=== PATIENT | female | born 1930 | race Hispanic/Latino ===

== ENCOUNTER 2016-07-10 13:25 | Emergency (ER) | payer MEDICARE ==
[2016-07-10] MEDS ORDERED: ZOFRAN IV ONE (13:59)
[2016-07-10] MEDS ORDERED: MORPHINE IV ONE ×2 (14:07→16:56)
[2016-07-10 14:20] LABS: Basophils % (Auto) 0.6 % (0.0-1.8); Eosinophils % (Auto) 0.8 % (0.0-4.3); Hematocrit 36.4 % (30.3-42.9); Mean Corpuscular HGB Conc 33 % (30-34); Mean Corpuscular Hemoglobin 30 pg (28-32); Mean Corpuscular Volume 90 fl (79-97); Red Blood Count 4.07 M/mm3 (3.65-5.03); Red Cell Distribution Width 14.6 % (13.2-15.2); White Blood Count 11.6 K/mm3 (4.5-11.0)
--- NOTE | 2016-07-10 14:24 | Emergency Department Report ---
HPI - General Chief Complaint: Abdominal Pain Time Seen by Provider: 07/10/16 13:55 - HPI HPI: Room 24 The patient is an 86-year-old female presenting with a chief complaint of left flank pain. Patient states her symptoms began last night with pain in the left flank radiating to the left lower quadrant. The patient states the pain has been intermittent and associated with nausea and vomiting. The patient states she noticed hematuria a few days before the onset of her pain. Patient denies dysuria or fever. Location: Left Flank Duration: Intermittent since last night Quality: Pain Severity: 01/17 Modifying factors: [see above] Context: [see above] Mode of transportation: [not driving] ED Past Medical Hx - Past Medical History Hx Hypertension: Yes Hx Heart Attack/AMI: Yes Hx Congestive Heart Failure: Yes Hx Diabetes: Yes Hx Deep Vein Thrombosis: Yes Hx Arthritis: Yes Hx Kidney Stones: Yes Hx COPD: Yes Additional medical history: hypothyroid - Surgical History Hx Coronary Stent: Yes (1 stent) Additional Surgical History: bilateral shoulder surgery. hysterectomy - Family History Family history: no significant - Social History Smoking Status: Never Smoker Substance Use Type: None - Medications Home Medications: Home Medications Medication Instructions Recorded Confirmed Last Taken Type Levothyroxine [Synthroid] 75 mcg PO DAILY 02/18/14 04/05/16 1 Day Ago History 75 ALPRAZolam [ALPRAZolam Odt] 0.5 mg PO BID PRN #30 tab 09/26/15 04/05/16 1 Day Ago Rx 0.5 Aspirin [Aspirin BABY CHEW TAB] 81 mg PO DAILY #30 tab.chew 09/26/15 04/05/16 1 Day Ago Rx 81 FLUoxetine [PROzac] 20 mg PO DAILY #30 tablet 09/26/15 04/05/16 1 Day Ago Rx 20 ISOSORBIDE MONOnitrate [Monoket] 60 mg PO DAILY #30 tablet 09/26/15 04/05/16 1 Day Ago Rx 60 Losartan [Cozaar] 100 mg PO QDAY #30 tablet 09/26/15 04/05/16 1 Day Ago Rx 100 Metformin HCl [Glucophage] 500 mg PO DAILY #30 tablet 09/26/15 04/05/16 1 Day Ago Rx 500 Metoprolol [Lopressor TAB] 25 mg PO BID #60 tablet 09/26/15 04/05/16 1 Day Ago Rx 25 Rosuvastatin (Nf) [Crestor] 10 mg PO QHS #30 tablet 09/26/15 04/05/16 1 Day Ago Rx 10 HYDROcodone/APAP 5-325 [[place] 1 - 2 each PO Q6HR PRN #20 tablet 07/10/16 Unknown Rx 5/325] Ibuprofen [Motrin 800 MG tab] 800 mg PO Q8HR PRN #20 tablet 07/10/16 Unknown Rx Promethazine [Phenergan TAB] 25 mg PO Q6HR PRN #20 tab 07/10/16 Unknown Rx Promethazine [Phenergan] 25 mg AR Q6HR PRN #10 supp.rect 07/10/16 Unknown Rx ED Review of Systems ROS: Stated complaint: FLANK/BACK PAIN Other details as noted in HPI Comment: All other systems reviewed and negative Constitutional: denies: chills, fever Eyes: denies: eye pain, eye discharge, vision change ENT: denies: ear pain, throat pain Respiratory: denies: cough, shortness of breath, wheezing Cardiovascular: denies: chest pain, palpitations Endocrine: no symptoms reported Gastrointestinal: abdominal pain, nausea, vomiting Genitourinary: hematuria Musculoskeletal: back pain Skin: denies: rash, lesions Neurological: denies: headache, weakness, paresthesias Psychiatric: denies: anxiety, depression Hematological/Lymphatic: denies: easy bleeding, easy bruising Physical Exam - Physical Exam Vital Signs: Vital Signs 07/10/16 13:32 Temperature 98.3 F Pulse Rate 57 L Respiratory 16 Rate Blood Pressure 183/58 O2 Sat by Pulse 99 Oximetry Physical Exam: GENERAL: The patient is well-developed well-nourished female lying on stretcher actively vomiting into an emesis bag appearing to be in moderate discomfort. [] HEENT: Normocephalic. Atraumatic. Extraocular motions are intact. Patient has moist mucous membranes. NECK: Supple. Trachea midline CHEST/LUNGS: Clear to auscultation. There is no respiratory distress noted. HEART/CARDIOVASCULAR: Regular. There is no tachycardia. There is no gallop rub or murmur. ABDOMEN: Abdomen is soft, with mild discomfort to palpation in the left lower quadrant. Patient has normal bowel sounds. There is no abdominal distention. SKIN: There is no rash. There is no edema. There is no diaphoresis. NEURO: The patient is awake, alert, and oriented. The patient is cooperative. The patient has normal speech MUSCULOSKELETAL: There is left CVA tenderness. There is no evidence of acute injury. ED Course Vital Signs 07/10/16 13:32 Temperature 98.3 F Pulse Rate 57 L Respiratory 16 Rate Blood Pressure 183/58 O2 Sat by Pulse 99 Oximetry ED Medical Decision Making - Lab Data Result diagrams: 07/10/16 13:56 07/10/16 13:56 Laboratory Tests 07/10/16 07/10/16 07/10/16 13:56 13:56 16:00 WBC 11.6 H RBC 4.07 Hgb 12.0 Hct 36.4 MCV 90 MCH 30 MCHC 33 RDW 14.6 Plt Count 135 L Lymph % (Auto) 15.4 [place] % (Auto) 5.6 Eos % (Auto) 0.8 Baso % (Auto) 0.6 Lymph # 1.8 [place] # 0.7 Eos # 0.1 Baso # 0.1 Seg Neutrophils % 77.6 H Seg Neutrophils # 9.0 H Sodium 135 L Potassium 5.1 H Chloride 99.2 Carbon Dioxide 18 L Anion Gap 23 BUN 20 H Creatinine 1.3 H Estimated GFR 39 BUN/Creatinine Ratio 15.38 Glucose 165 H Calcium 9.3 Total Bilirubin 0.6 AST 37 ALT 15 Alkaline Phosphatase 78 Total Protein 7.4 Albumin 3.7 L Albumin/Globulin Ratio 1.0 Lipase 60 Urine Color Yellow Urine Turbidity Clear Urine pH 5.0 Ur Specific [place] 1.014 Urine Protein 30 mg/dl Urine Glucose (UA) Neg Urine Ketones Neg Urine Blood Lg Urine Nitrite Neg Urine Bilirubin Neg Urine Urobilinogen < 2.0 Ur Leukocyte Esterase Tr Urine WBC (Auto) 1.0 Urine RBC (Auto) 24.0 U Epithel Cells (Auto) 1.0 Urine Bacteria (Auto) 1+ Urine Mucus Few - Radiology Data Radiology results: report reviewed (CT abdomen and pelvis), image reviewed (CT abdomen and pelvis) CT abdomen and pelvis (read by radiologist)-mild left hydroureter nephrosis secondary to 3 mm left distal ureteral calculus is new since April 2011. Small left intrarenal calculus also noted. - Differential Diagnosis renal colic, diverticulitis, pyelonephritis Critical care attestation.: If time is entered above; I have spent that time in minutes in the direct care of this critically ill patient, excluding procedure time. ED Disposition Clinical Impression: Acute left flank pain, Nausea & vomiting, Renal colic on left side Disposition: DISCHARGED TO HOME OR SELFCARE Is pt being admited?: No Does the pt Need Aspirin: No Condition: Stable Instructions: Abdominal Pain (ED), Renal Colic (ED) Additional Instructions: Return to the emergency department immediately should you develop worsening symptoms, fever, inability to tolerate food or liquid or any other concerns. Prescriptions: HYDROcodone/APAP 5-325 [[place] 5/325] 1 - 2 each PO Q6HR PRN #20 tablet PRN Reason: Pain Ibuprofen [Motrin 800 MG tab] 800 mg PO Q8HR PRN #20 tablet PRN Reason: Pain Promethazine [Phenergan TAB] 25 mg PO Q6HR PRN #20 tab PRN Reason: Nausea Promethazine [Phenergan] 25 mg AR Q6HR PRN #10 supp.rect PRN Reason: Vomiting Referrals: PRIMARY CARE, [Primary Care Provider] - 3-5 Days RORO SHERIDAN MD [Staff Physician] - 3-5 Days (Dr. Sheridan is a urologist. Please follow up with him for further evaluation) Time of Disposition: 17:00
[2016-07-10 14:30] LABS: Albumin 3.7 g/dL (3.9-5); BUN/Creatinine Ratio 15.38; Bilirubin,Total 0.6 mg/dL (0.1-1.2); Calcium 9.3 mg/dL (8.4-10.2); Chloride 99.2 mmol/L (98-107); Total Protein 7.4 g/dL (6.3-8.2)
[2016-07-10 14:43] LABS: Potassium 5.1 mmol/L (3.6-5.0)
[2016-07-10 15:12] LABS: Platelet Count 135 K/mm3 (140-440)
[2016-07-10] MEDS ORDERED: TORADOL IV ONE (15:44)
--- NOTE | 2016-07-10 15:51 | Cat Scan Report ---
CT ABDOMEN AND PELVIS WITHOUT CONTRAST INDICATION: Left flank pain, nausea, vomiting. COMPARISON: 04/29/2011 FINDINGS: Noncontrast abdomen and pelvis CT performed. LUNG BASES: Top normal heart size. Atherosclerotic aortic and coronary calcifications. No effusions. Mild bilateral peripheral/subpleural scarring as also approximately 1 cm calcified scarring/granuloma at the left lung base posteriorly on axial series 2 image 32 again noted. Nonspecific distal esophageal wall thickening, not excluded for gastroesophageal reflux and/or hiatal hernia, amongst others. ABDOMEN: Please note that sensitivity to detect small visceral lesions is limited due to the absence of intravenous or oral contrast. Mild left hydronephrosis and hydroureter now seen, extending inferiorly into the pelvis. Slight left perinephric stranding. A 3 mm left intrarenal calculus inferiorly also noted, axial image 134, series 2. No radiopaque right renal calculi with an approximately 4 mm hyperdense, possibly hemorrhagic cyst anteroinferiorly on axial image 146, series 2. Interval cholecystectomy. Otherwise grossly unremarkable unenhanced liver, spleen, pancreas, adrenals, nonaneurysmal abdominal aorta with atherosclerotic calcifications and IVC. Nonopacified GI tract evaluation limited, though grossly nonobstructive. Mild descending colon diverticulosis. No ascites or size significant adenopathy. Fat-containing inguinal hernia with a transverse neck of 1.5 cm is stable. PELVIS: Dilated left distal ureter leads to an approximately 3 mm obstructing calculus, axial image 267, series 2, situated approximately 3 cm proximal to the ureterovesical junction. Few pelvic vascular calcifications also again noted. Otherwise grossly unremarkable urinary bladder and the rectum. Numerous sigmoid diverticuli without acute complication. No free fluid or significant adenopathy. Prominent fat within the inguinal canal regions noted. Demineralized bones with multilevel spinal degenerative changes again seen, including mild dextroscoliosis apex about L3-L4. Multilevel lumbar vacuum disc phenomenon, greatest at L2-L3 and L3-L4. Mild, approximately 2-3 mm retrolisthesis of L2 over L3 and L3 over L4 as well. Approximately 1.5 cm Schmorl's node along superior endplate of L2 also noted. L5-S1 facet arthropathy. CONCLUSION: 1. Mild left hydroureteronephrosis secondary to a 3 mm left distal ureteral calculus is new since April 2011, as described. Small left intrarenal calculus also noted. 2. Interval cholecystectomy. 3. Various other stable findings, including atherosclerotic changes, chronic imaged lower lung changes, distal esophageal prominence, diverticulosis, fat-containing umbilical hernia and multilevel spinal degenerative changes, amongst others, as described. I phoned the above results to Dr. Marrero in the ER, 3:40 PM, 07/10/2016. Thank you for the opportunity to participate in this patient's care.
[2016-07-10 16:18] LABS: Bacteria,Urine 1+ /HPF (Negative); Bilirubin,Urine NEG (Negative); Blood,Urine LG (Negative); Ketones,Urine NEG (Negative); Leukocyte Esterase,Urine TR (Negative); Mucus,Urine FEW /HPF; Nitrite,Urine NEG (Negative); Urobilinogen,Urine < 2.0 mg/dL (<2.0)
[2016-07-10 16:50] VITALS: BP 129/81
== END 2016-07-10 17:25 | disposition home or self-care (01) ==
LOC: ED 13:25
DX: N23 Unspecified renal colic (principal); I10 Essential (primary) hypertension; E11.9 Type 2 diabetes mellitus without complications; J44.9 Chronic obstructive pulmonary disease, unspecified; E03.9 Hypothyroidism, unspecified; I50.9 Heart failure, unspecified; Z87.19 Personal history of other diseases of the digestive system; Z86.718 Personal history of other venous thrombosis and embolism
CPT/HCPCS: 36415; 74176; 80053; 81001; 83690; 85025; 96374; 96375; 96376; 99284; J1885; J2270; J2405

== ENCOUNTER 2016-07-20 11:36 | Outpatient (CLI) | payer MEDICARE ==
--- NOTE | 2016-07-20 12:28 | Cat Scan Report ---
CT ABDOMEN AND PELVIS WITHOUT CONTRAST INDICATION: Calculus of kidney. COMPARISON: 07/10/2016 FINDINGS: Noncontrast abdomen and pelvis CT performed. LUNG BASES: Top normal heart size, atherosclerotic aortic and coronary calcifications and chronic left lower lobe scarring and approximately 1 cm calcified granuloma again noted. Slight increased AP chest diameter. No effusions. Nonspecific distal esophageal wall thickening, not excluded for gastroesophageal reflux and/or hiatal hernia, amongst others. ABDOMEN: Please note that sensitivity to detect small visceral lesions is limited due to the absence of intravenous or oral contrast. Interval resolution of left hydroureteronephrosis. Stable 3 mm left intrarenal calculus on axial image 138, series 2 and a tiny right renal hemorrhagic cyst anteriorly, axial image 135. No other significant interval change, including stable cholecystectomy clips, fat-containing umbilical hernia with a transverse neck of 1.7 cm and few descending colon diverticuli. PELVIS: Previously seen left distal ureter calculus no longer identified, likely passed in the interval. Uterus again surgically absent. Rectal stool. Urinary bladder suboptimally distended and assessed. Numerous sigmoid diverticuli and prominent fat within the inguinal canal regions again noted. Stable bones, including various degenerative changes, detailed previously and greatest about L2 and L3 levels. CONCLUSION: 1. Interval nonvisualization/passage of left distal ureteral calculus and resolution of left hydroureteronephrosis, as described. 2. Various other stable findings, as detailed above. Thank you for the opportunity to participate in this patient's care.
== END 2016-07-20 11:37 | disposition home or self-care (01) ==
LOC: CT 11:36
PROVIDERS: ATTEND Urology
DX: N20.0 Calculus of kidney (principal); N28.1 Cyst of kidney, acquired; N20.1 Calculus of ureter; I70.0 Atherosclerosis of aorta; K42.9 Umbilical hernia without obstruction or gangrene; M47.896 Other spondylosis, lumbar region; Z90.49 Acquired absence of other specified parts of digestive tract
CPT/HCPCS: 74176

== ENCOUNTER 2016-11-29 09:22 | Observation (INO) | payer MEDICARE ==
[2016-11-29 10:53] LABS: Basophils % (Auto) 0.5 % (0.0-1.8); Eosinophils % (Auto) 1.5 % (0.0-4.3); Hemoglobin 11.7 gm/dl (10.1-14.3); Mean Corpuscular HGB Conc 33 % (30-34); Mean Corpuscular Hemoglobin 30 pg (28-32); Mean Corpuscular Volume 91 fl (79-97); Platelet Count 135 K/mm3 (140-440); Red Blood Count 3.86 M/mm3 (3.65-5.03); Red Cell Distribution Width 14.1 % (13.2-15.2); White Blood Count 6.3 K/mm3 (4.5-11.0)
[2016-11-29] MEDS ORDERED: ASPIRIN PO ONE (11:02)
--- NOTE | 2016-11-29 11:07 | Emergency Department Report ---
ED Shortness of Breath HPI - General Chief Complaint: Arrhythmia/Palpitations Stated Complaint: PALPITATIONS Time Seen by Provider: 11/29/16 10:21 Source: patient, EMS Mode of arrival: Stretcher Limitations: No Limitations - History of Present Illness Initial Comments: 86-year-old female hit a history of CAD and COPD here with complaint of worsening shortness of breath for the last 3 days and chest pain today. Patient states that she's noticed that she's having increasing fatigue and shortness of breath especially when she exerts herself. She noticed chest pain today on arrival to the emergency department with radiation to the left shoulder and left arm. She denies cough fevers chills nausea vomiting. She appears comfortable. She is a patient of . Stent placed approximately 4 years ago. MD Complaint: shortness of breath -: Gradual (shortness of breath), Sudden (chest pain) Radiation: left arm Severity: mild Quality: burning Consistency: intermittent Improves With: nothing Worsens With: nothing Known History Of: COPD, other (CAD) Associated Symptoms: chest pain - Related Data Home Medications Medication Instructions Recorded Confirmed Last Taken Levothyroxine [Synthroid] 75 mcg PO DAILY 02/18/14 04/05/16 1 Day Ago 75 Previous Rx's Medication Instructions Recorded Last Taken Type ALPRAZolam [ALPRAZolam Odt] 0.5 mg PO BID PRN #30 tab 09/26/15 1 Day Ago Rx 0.5 Aspirin [Aspirin BABY CHEW TAB] 81 mg PO DAILY #30 tab.chew 09/26/15 1 Day Ago Rx 81 FLUoxetine [PROzac] 20 mg PO DAILY #30 tablet 09/26/15 1 Day Ago Rx 20 ISOSORBIDE MONOnitrate [Monoket] 60 mg PO DAILY #30 tablet 09/26/15 1 Day Ago Rx 60 Losartan [Cozaar] 100 mg PO QDAY #30 tablet 09/26/15 1 Day Ago Rx 100 Metformin HCl [Glucophage] 500 mg PO DAILY #30 tablet 09/26/15 1 Day Ago Rx 500 Metoprolol [Lopressor TAB] 25 mg PO BID #60 tablet 09/26/15 1 Day Ago Rx 25 Rosuvastatin (Nf) [Crestor] 10 mg PO QHS #30 tablet 09/26/15 1 Day Ago Rx 10 HYDROcodone/APAP 5-325 [[place] 1 - 2 each PO Q6HR PRN #20 tablet 03/03/17 Unknown Rx 5/325] Ibuprofen [Motrin 800 MG tab] 800 mg PO Q8HR PRN #20 tablet 07/10/16 Unknown Rx Promethazine [Phenergan TAB] 25 mg PO Q6HR PRN #20 tab 07/10/16 Unknown Rx Promethazine [Phenergan] 25 mg AL Q6HR PRN #10 supp.rect 07/10/16 Unknown Rx Allergies Allergy/AdvReac Type Severity Reaction Status Date / Time codeine Allergy Hives Verified 02/18/14 09:50 meperidine HCl [From Demerol] Allergy Hives Verified 02/18/14 09:50 ED Review of Systems ROS: Stated complaint: PALPITATIONS Other details as noted in HPI Comment: All other systems reviewed and negative Constitutional: denies: chills, fever Eyes: denies: eye pain, eye discharge, vision change ENT: denies: ear pain, throat pain Respiratory: shortness of breath, SOB with exertion. denies: cough, wheezing Cardiovascular: chest pain, dyspnea on exertion. denies: palpitations Endocrine: no symptoms reported Gastrointestinal: denies: abdominal pain, nausea, diarrhea Genitourinary: denies: urgency, dysuria, discharge Musculoskeletal: denies: back pain, joint swelling, arthralgia Skin: denies: rash, lesions Neurological: denies: headache, weakness, paresthesias Psychiatric: denies: anxiety, depression Hematological/Lymphatic: denies: easy bleeding, easy bruising ED Past Medical Hx - Past Medical History Hx Hypertension: Yes Hx Heart Attack/AMI: Yes Hx Congestive Heart Failure: Yes Hx Diabetes: Yes Hx Deep Vein Thrombosis: Yes Hx Arthritis: Yes Hx Kidney Stones: Yes Hx COPD: Yes Hx Tuberculosis: No Hx HIV: No Additional medical history: hypothyroid - Surgical History Hx Coronary Stent: Yes (1 stent) Additional Surgical History: bilateral shoulder surgery. hysterectomy - Social History Smoking Status: Never Smoker Substance Use Type: None - Medications Home Medications: Home Medications Medication Instructions Recorded Confirmed Last Taken Type Levothyroxine [Synthroid] 75 mcg PO DAILY 02/18/14 04/05/16 1 Day Ago History 75 ALPRAZolam [ALPRAZolam Odt] 0.5 mg PO BID PRN #30 tab 09/26/15 04/05/16 1 Day Ago Rx 0.5 Aspirin [Aspirin BABY CHEW TAB] 81 mg PO DAILY #30 tab.chew 09/26/15 04/05/16 1 Day Ago Rx 81 FLUoxetine [PROzac] 20 mg PO DAILY #30 tablet 09/26/15 04/05/16 1 Day Ago Rx 20 ISOSORBIDE MONOnitrate [Monoket] 60 mg PO DAILY #30 tablet 09/26/15 04/05/16 1 Day Ago Rx 60 Losartan [Cozaar] 100 mg PO QDAY #30 tablet 09/26/15 04/05/16 1 Day Ago Rx 100 Metformin HCl [Glucophage] 500 mg PO DAILY #30 tablet 09/26/15 04/05/16 1 Day Ago Rx 500 Metoprolol [Lopressor TAB] 25 mg PO BID #60 tablet 09/26/15 04/05/16 1 Day Ago Rx 25 Rosuvastatin (Nf) [Crestor] 10 mg PO QHS #30 tablet 09/26/15 04/05/16 1 Day Ago Rx 10 HYDROcodone/APAP 5-325 [[place] 1 - 2 each PO Q6HR PRN #20 tablet 07/10/16 Unknown Rx 5/325] Ibuprofen [Motrin 800 MG tab] 800 mg PO Q8HR PRN #20 tablet 07/10/16 Unknown Rx Promethazine [Phenergan TAB] 25 mg PO Q6HR PRN #20 tab 07/10/16 Unknown Rx Promethazine [Phenergan] 25 mg AL Q6HR PRN #10 supp.rect 07/10/16 Unknown Rx ED Physical Exam - General Limitations: No Limitations General appearance: alert, in no apparent distress - Head Head exam: Present: atraumatic, normocephalic - Eye Eye exam: Present: normal appearance - ENT ENT exam: Present: mucous membranes moist - Neck Neck exam: Present: normal inspection - Respiratory Respiratory exam: Present: normal lung sounds bilaterally. Absent: respiratory distress, wheezes, rales, rhonchi - Cardiovascular Cardiovascular Exam: Present: regular rate, normal rhythm. Absent: systolic murmur, diastolic murmur, rubs, gallop - GI/Abdominal GI/Abdominal exam: Present: soft, normal bowel sounds - Extremities Exam Extremities exam: Present: normal inspection - Back Exam Back exam: Present: normal inspection - Neurological Exam Neurological exam: Present: alert, oriented X3 - Psychiatric Psychiatric exam: Present: normal affect, normal mood - Skin Skin exam: Present: warm, dry, intact, normal color. Absent: rash ED Course Vital Signs 11/29/16 11/29/16 11/29/16 09:20 09:30 09:45 Temperature Pulse Rate 66 Respiratory 19 14 Rate Blood Pressure 149/65 149/65 O2 Sat by Pulse 99 98 Oximetry 11/29/16 11/29/16 11/29/16 09:51 09:59 10:00 Temperature 98.2 F Pulse Rate 62 Respiratory 15 16 18 Rate Blood Pressure 137/56 160/78 O2 Sat by Pulse 99 97 Oximetry 11/29/16 11/29/16 11/29/16 10:01 10:11 10:21 Temperature Pulse Rate 60 60 61 Respiratory 13 12 25 H Rate Blood Pressure 136/62 136/62 130/71 O2 Sat by Pulse 97 97 96 Oximetry 11/29/16 11/29/16 11/29/16 10:31 10:41 10:51 Temperature Pulse Rate 59 L 58 L 56 L Respiratory 15 16 15 Rate Blood Pressure 116/65 149/65 112/73 O2 Sat by Pulse 95 97 99 Oximetry ED Medical Decision Making - Lab Data Result diagrams: 11/29/16 10:31 11/29/16 10:31 - EKG Data -: EKG Interpreted by Ga - EKG Data 11/29/16 11:10 Sinus bradycardia rate of 59 and normal axis normal intervals incomplete right bundle branch block no ST-T wave changes - Medical Decision Making 86-year-old female here with shortness of breath and chest pain. She has a history of CAD and COPD. She is likely high-risk candidate for ACS. Plan EKG labs chest x-ray. Plan to reassess. Given risk factors plan to admit to [facility] for further evaluation and cardiac rule out. Portions of this chart were dictated with dictation software. There may be dictation errors contained within this note. Critical care attestation.: If time is entered above; I have spent that time in minutes in the direct care of this critically ill patient, excluding procedure time. ED Disposition Clinical Impression: Dyspnea, CAD (coronary artery disease), Chest pain Disposition: OP ADMIT IP TO THIS HOSP Is pt being admited?: Yes Condition: Stable Instructions: Chest Pain (ED) Referrals: PRIMARY CARE, [Primary Care Provider] - 3-5 Days
[2016-11-29 11:08] LABS: BUN/Creatinine Ratio 19.09; Calcium 8.8 mg/dL (8.4-10.2); Chloride 102.7 mmol/L (98-107); Potassium 4.6 mmol/L (3.6-5.0)
[2016-11-29 11:19] LABS: Bilirubin,Urine NEG (Negative); Blood,Urine NEG (Negative); Ketones,Urine NEG (Negative); Leukocyte Esterase,Urine TR (Negative); Mucus,Urine FEW /HPF; Nitrite,Urine NEG (Negative); Urobilinogen,Urine < 2.0 mg/dL (<2.0)
--- NOTE | 2016-11-29 11:48 | XRay Report ---
Single view chest: Compared to 04/06/16. History: Chest pain, shortness of breath. Findings: Cardiomegaly. Trachea is midline. No consolidation, pneumothorax or pleural effusion. Impression: No acute cardiopulmonary findings.
--- NOTE | 2016-11-29 14:31 | History and Physical Report ---
History of Present Illness Date of examination: 11/29/16 Date of admission: 11/29/16 13:53 Chief complaint: chief complaint: Shortness of breath on exertion for 2 days History of present illness: History of Present Illness 86-year-old female hit a history of CAD and COPD here with complaint of worsening shortness of breath for the last 3 days and chest pain today. Patient states that she's noticed that she's having increasing fatigue and shortness of breath especially when she exerts herself. She noticed chest pain today on arrival to the emergency department with radiation to the left shoulder and left arm. She denies cough fevers chills nausea vomiting. She appears comfortable. She is a patient of Dr Arias Stent placed approximately 4 years ago. Past Medical History Hx Hypertension: Yes Hx Heart Attack/AMI: Yes Hx Congestive Heart Failure: Yes Hx Diabetes: Yes Hx Deep Vein Thrombosis: Yes Hx Arthritis: Yes Hx Kidney Stones: Yes Hx COPD: YesAdditional medical history: hypothyroid - Surgical History Hx Coronary Stent: Yes (1 stent) Additional Surgical History: bilateral shoulder surgery. hysterectomy - Social History Smoking Status: Never Smoker Substance Use Type: None - Medications Home Medications: Home Medications Medication Instructions Recorded Confirmed Last Taken Type Levothyroxine [Synthroid] 75 mcg PO DAILY 02/18/14 04/05/16 1 Day Ago History 75 ALPRAZolam [ALPRAZolam Odt] 0.5 mg PO BID PRN #30 tab 09/26/15 04/05/16 1 Day Ago Rx 0.5 Aspirin [Aspirin BABY CHEW TAB] 81 mg PO DAILY #30 tab.chew 09/26/15 04/05/16 1 Day Ago Rx 81 FLUoxetine [PROzac] 20 mg PO DAILY #30 tablet 09/26/15 04/05/16 1 Day Ago Rx 20 ISOSORBIDE MONOnitrate [Monoket] 60 mg PO DAILY #30 tablet 09/26/15 04/05/16 1 Day Ago Rx 60 Losartan [Cozaar] 100 mg PO QDAY #30 tablet 09/26/15 04/05/16 1 Day Ago Rx 100 Metformin HCl [Glucophage] 500 mg PO DAILY #30 tablet 09/26/15 04/05/16 1 Day Ago Rx 500 Metoprolol [Lopressor TAB] 25 mg PO BID #60 tablet 09/26/15 04/05/16 1 Day Ago Rx 25 Rosuvastatin (Nf) [Crestor] 10 mg PO QHS #30 tablet 09/26/15 04/05/16 1 Day Ago Rx 10 HYDROcodone/APAP 5-325 [[place] 1 - 2 each PO Q6HR PRN #20 tablet 07/10/16 Unknown Rx 5/325] Ibuprofen [Motrin 800 MG tab] 800 mg PO Q8HR PRN #20 tablet 07/10/16 Unknown Rx Promethazine [Phenergan TAB] 25 mg PO Q6HR PRN #20 tab 07/10/16 Unknown Rx Promethazine [Phenergan] 25 mg AL Q6HR PRN #10 supp.rect 07/10/16 Unknown Rx Home Medications Medication Instructions Recorded Confirmed Last Taken Levothyroxine [Synthroid] 75 mcg PO DAILY 02/18/14 04/05/16 1 Day Ago 75 Allergies Allergy/AdvReac Type Severity Reaction Status Date / Time codeine Allergy Hives Verified 02/18/14 09:50 meperidine HCl [From Demerol] Allergy Hives Verified 02/18/14 09:50 Review of Systems ROS: Stated complaint: PALPITATIONS and shortness of breath on minimal exertion and chest pain Other details as noted in HPI Comment: All other systems reviewed and negative Constitutional: denies: chills, fever Eyes: denies: eye pain, eye discharge, vision change ENT: denies: ear pain, throat pain Respiratory: shortness of breath, SOB with exertion. denies: cough, wheezing Cardiovascular: chest pain, dyspnea on exertion. denies: palpitations Endocrine: no symptoms reported Gastrointestinal: denies: abdominal pain, nausea, diarrhea Genitourinary: denies: urgency, dysuria, discharge Musculoskeletal: denies: back pain, joint swelling, arthralgia Skin: denies: rash, lesions Neurological: denies: headache, weakness, paresthesias Psychiatric: denies: anxiety, depression Hematological/Lymphatic: denies: easy bleeding, easy bruising Medications and Allergies Allergies Allergy/AdvReac Type Severity Reaction Status Date / Time codeine Allergy Hives Verified 02/18/14 09:50 meperidine HCl [From Demerol] Allergy Hives Verified 02/18/14 09:50 Home Medications Medication Instructions Recorded Confirmed Last Taken Type Levothyroxine [Synthroid] 75 mcg PO DAILY 02/18/14 04/05/16 1 Day Ago History 75 ALPRAZolam [ALPRAZolam Odt] 0.5 mg PO BID PRN #30 tab 09/26/15 04/05/16 1 Day Ago Rx 0.5 Aspirin [Aspirin BABY CHEW TAB] 81 mg PO DAILY #30 tab.chew 09/26/15 04/05/16 1 Day Ago Rx 81 FLUoxetine [PROzac] 20 mg PO DAILY #30 tablet 09/26/15 04/05/16 1 Day Ago Rx 20 ISOSORBIDE MONOnitrate [Monoket] 60 mg PO DAILY #30 tablet 09/26/15 04/05/16 1 Day Ago Rx 60 Losartan [Cozaar] 100 mg PO QDAY #30 tablet 09/26/15 04/05/16 1 Day Ago Rx 100 Metformin HCl [Glucophage] 500 mg PO DAILY #30 tablet 09/26/15 04/05/16 1 Day Ago Rx 500 Metoprolol [Lopressor TAB] 25 mg PO BID #60 tablet 09/26/15 04/05/16 1 Day Ago Rx 25 Rosuvastatin (Nf) [Crestor] 10 mg PO QHS #30 tablet 09/26/15 04/05/16 1 Day Ago Rx 10 HYDROcodone/APAP 5-325 [[place] 1 - 2 each PO Q6HR PRN #20 tablet 07/10/16 Unknown Rx 5/325] Ibuprofen [Motrin 800 MG tab] 800 mg PO Q8HR PRN #20 tablet 07/10/16 Unknown Rx Promethazine [Phenergan TAB] 25 mg PO Q6HR PRN #20 tab 07/10/16 Unknown Rx Promethazine [Phenergan] 25 mg AL Q6HR PRN #10 supp.rect 07/10/16 Unknown Rx Exam - Physical Exam Narrative exam: Lying comfortably - Constitutional Vitals: Temp Pulse Resp BP Pulse Ox 98.2 F 56 L 15 112/73 99 11/29/16 09:59 11/29/16 10:51 11/29/16 10:51 11/29/16 10:51 11/29/16 10:51 General appearance: Present: no acute distress, well-nourished - EENT Eyes: Present: PERRL ENT: hearing intact, clear oral mucosa - Neck Neck: Present: supple, normal ROM - Respiratory Respiratory effort: normal Respiratory: bilateral: CTA - Cardiovascular Heart Sounds: Present: S1 & S2. Absent: rub, click - Extremities Extremities: pulses symmetrical, No edema Peripheral Pulses: within normal limits - Abdominal General gastrointestinal: Present: soft, non-tender, non-distended, normal bowel sounds Female genitourinary: Present: normal - Integumentary Integumentary: Present: clear, warm, dry - Musculoskeletal Musculoskeletal: gait normal, strength equal bilaterally - Psychiatric Psychiatric: appropriate mood/affect, intact judgment & insight - Neurologic Neurologic: CNII-XII intact, moves all extremities Results - Labs CBC & Chem 7: 11/29/16 10:31 11/29/16 10:31 Labs: Laboratory Last Values WBC 6.3 K/mm3 (4.5-11.0) 11/29/16 10:31 RBC 3.86 M/mm3 (3.65-5.03) 11/29/16 10:31 Hgb 11.7 gm/dl (10.1-14.3) 11/29/16 10:31 Hct 35.0 % (30.3-42.9) 11/29/16 10:31 MCV 91 fl (79-97) 11/29/16 10:31 MCH 30 pg (28-32) 11/29/16 10:31 MCHC 33 % (30-34) 11/29/16 10:31 RDW 14.1 % (13.2-15.2) 11/29/16 10:31 Plt Count 135 K/mm3 (140-440) L 11/29/16 10:31 Lymph % (Auto) 22.4 % (13.4-35.0) 11/29/16 10:31 [place] % (Auto) 6.9 % (0.0-7.3) 11/29/16 10:31 Eos % (Auto) 1.5 % (0.0-4.3) 11/29/16 10:31 Baso % (Auto) 0.5 % (0.0-1.8) 11/29/16 10:31 Lymph # 1.4 K/mm3 (1.2-5.4) 11/29/16 10:31 [place] # 0.4 K/mm3 (0.0-0.8) 11/29/16 10:31 Eos # 0.1 K/mm3 (0.0-0.4) 11/29/16 10:31 Baso # 0.0 K/mm3 (0.0-0.1) 11/29/16 10:31 Seg Neutrophils % 68.7 % (40.0-70.0) 11/29/16 10:31 Seg Neutrophils # 4.3 K/mm3 (1.8-7.7) 11/29/16 10:31 Sodium 139 mmol/L (137-145) 11/29/16 10:31 Potassium 4.6 mmol/L (3.6-5.0) 11/29/16 10:31 Chloride 102.7 mmol/L (98-107) 11/29/16 10:31 Carbon Dioxide 20 mmol/L (22-30) L 11/29/16 10:31 Anion Gap 21 mmol/L 11/29/16 10:31 BUN 21 mg/dL (7-17) H 11/29/16 10:31 Creatinine 1.1 mg/dL (0.7-1.2) 11/29/16 10:31 Estimated GFR 47 ml/min 11/29/16 10:31 BUN/Creatinine Ratio 19.09 % 11/29/16 10:31 Glucose 98 mg/dL (65-100) 11/29/16 10:31 Calcium 8.8 mg/dL (8.4-10.2) 11/29/16 10:31 Troponin T < 0.010 ng/mL (0.00-0.029) 11/29/16 13:25 NT-Pro-B Natriuret Pep 603.9 pg/mL (0-900) 11/29/16 10:33 Urine Color Yellow (Yellow) 11/29/16 09:46 Urine Turbidity Clear (Clear) 11/29/16 09:46 Urine pH 5.0 (5.0-7.0) 11/29/16 09:46 Ur Specific [place] 1.015 (1.003-1.030) 11/29/16 09:46 Urine Protein 30 mg/dl mg/dL (Negative) 11/29/16 09:46 Urine Glucose (UA) Neg mg/dL (Negative) 11/29/16 09:46 Urine Ketones Neg mg/dL (Negative) 11/29/16 09:46 Urine Blood Neg (Negative) 11/29/16 09:46 Urine Nitrite Neg (Negative) 11/29/16 09:46 Urine Bilirubin Neg (Negative) 11/29/16 09:46 Urine Urobilinogen < 2.0 mg/dL (<2.0) 11/29/16 09:46 Ur Leukocyte Esterase Tr (Negative) 11/29/16 09:46 Urine WBC (Auto) 4.0 /HPF (0.0-6.0) 11/29/16 09:46 Urine RBC (Auto) 4.0 /HPF (0.0-6.0) 11/29/16 09:46 U Epithel Cells (Auto) 2.0 /HPF (0-13.0) 11/29/16 09:46 Urine Mucus Few /HPF 11/29/16 09:46 Assessment and Plan Advance Directives: Yes (full code) VTE prophylaxis?: Chemical Plan of care discussed with patient/family: Yes - Patient Problems (1) Acute coronary syndrome Current Visit: No Status: Acute Plan to address problem: Serial cardiac enzymes and Lexiscan in the morning .Acute coronary syndrome most likely. Differential diagnosis of costochondritis and gastroesophageal reflux disease unlikely. (2) Acute exacerbation of CHF (congestive heart failure) Current Visit: Yes Status: Acute Qualifiers: Congestive heart failure type: combined Qualified Code(s): I50.43 - Acute on chronic combined systolic (congestive) and diastolic (congestive) heart failure Plan to address problem: Continue Lasix. Check echocardiogram. Cardiology consulted. (3) Hyperlipidemia Current Visit: Yes Status: Chronic Qualifiers: Hyperlipidemia type: mixed hyperlipidemia Qualified Code(s): E78.2 - Mixed hyperlipidemia Plan to address problem: Continue statins (4) Type 2 diabetes mellitus Current Visit: Yes Status: Chronic Qualifiers: Diabetes mellitus complication status: without complication Diabetes mellitus complication detail: D Diabetic retinopathy severity: D Proliferative retinopathy type: P Diabetes mellitus macular edema: D Diabetes mellitus jail insulin use: D Laterality: L Chronic kidney disease stage: C Plan to address problem: Continue metformin and coverage. Check hemoglobin A1c. (5) Hypothyroidism Current Visit: Yes Status: Chronic Qualifiers: Hypothyroidism type: acquired Qualified Code(s): E03.9 - Hypothyroidism, unspecified Plan to address problem: Continue Synthroid at 75 g by mouth daily check TSH. (6) Hypertension Current Visit: Yes Status: Acute Qualifiers: Hypertension type: essential hypertension Qualified Code(s): I10 - Essential (primary) hypertension Plan to address problem: Continue losartan and metoprolol (7) CAD (coronary artery disease) Current Visit: Yes Status: Chronic Qualifiers: Coronary Disease-Associated Artery/Lesion type: [place] artery [place] vs. transplanted heart: N Associated angina: with unspecified angina Plan to address problem: Continue isosorbide mononitrate and aspirin (8) LOUISA (generalized anxiety disorder) Current Visit: Yes Status: Chronic Plan to address problem: Continue alprazolam 0.5 mg twice a day (9) DVT prophylaxis Current Visit: Yes Status: Acute Plan to address problem: On Lovenox 40 mg subcutaneous daily
[2016-11-29] MEDS ORDERED: MOTRIN PO PRN (14:34)
[2016-11-29] MEDS ORDERED: PHENERGAN PR PRN (14:34)
[2016-11-29] MEDS ORDERED: PHENERGAN PO PRN (14:34)
[2016-11-29] MEDS ORDERED: NORCO 5/325 PO PRN (14:34)
[2016-11-29] MEDS ORDERED: ALPRAZOLAM 0.5 MG PO PRN (14:34)
[2016-11-29] MEDS ORDERED: GLUCOPHAGE PO SCH (14:45)
[2016-11-29] MEDS ORDERED: GLUCOPHAGE ONE (15:09)
[2016-11-29] MEDS ORDERED: XANAX PO PRN (15:09)
[2016-11-29] MEDS ORDERED: COZAAR ONE (15:09)
[2016-11-29] MEDS ORDERED: BABY ASPIRIN ONE (15:09)
[2016-11-29] MEDS: BABY ASPIRIN PO SCH (15:17)
[2016-11-29] MEDS: COZAAR PO SCH (15:17)
[2016-11-29] MEDS ORDERED: PROzac ONE (15:18)
[2016-11-29] MEDS ORDERED: LOPRESSOR ONE (15:18)
[2016-11-29] MEDS: PROzac PO SCH (15:20)
[2016-11-29] MEDS: LOPRESSOR PO SCH ×2 (15:20→20:59)
[2016-11-29 17:29] LABS: Creatine Kinase MB 2.5 ng/mL (0.0-4.0)
[2016-11-29 17:30] LABS: Creatine Kinase 110 units/L (30-135)
[2016-11-29] MEDS: SYNTHROID PO SCH (19:33)
[2016-11-29] MEDS ORDERED: NON-FORMULARY (Rosuvastatin (Nf) 10 MG) PO SCH (22:00)
[2016-11-30 05:06] LABS: Creatine Kinase MB 2.2 ng/mL (0.0-4.0)
--- NOTE | 2016-11-30 07:43 | Admit Criteria Form ---
Admission Criteria Documentation: CARDIOLOGY GRG Clinical Indications for Admission to Inpatient Care ( Place 'X' for any and all applicable criteria): Hospital admission is needed for appropriate care of the patient because of ANY ONE of the following (1): [ ] I. Hemodynamic instability as indicated by ALL of the following (1)(2)(3) (4)(5) [ ]a) Vital signs or other findings not as expected for chronic patient condition or baseline [ ]b) Instability indicated by ANY ONE of the following: [ ]i) Hypotension [ ]ii) Symptomatic Tachycardia unresponsive to treatment ( e.g., analgesia, fluids, sedation as indicated) [ ]iii) Inadequate perfusion indicated by ANY ONE of the following: [ ] 1) Lactic acidosis (> 2 mmol/L) [ ] 2) New abnormal capillary refill (> 3 seconds) [ ] 3) Reduced urine output [ ] 4) New altered mental status [ ]iv) Orthostatic vital sign changes unresponsive to treatment (e.g., fluids) [ ]v) IV inotropic or vasopressor medication required to maintain adequate blood pressure or perfusion [ ] II. Severe heart failure as indicated by ANY ONE of the following(17)(18) [ ]a) Respiratory distress [ ]b) Hypotension [ ]c) Anasarca (refractory to outpatient therapy) [ ]d) Cardiac arrhythmias of immediate concern [ ]e) Myocardial ischemia [ ] III. Cardiac arrhythmias or findings of immediate concern indicated by ANY ONE of the following (19)(20): [ ] a) Heart rhythms that are inherently dangerous or unstable indicated by ANY ONE of the following (21)(22)(23): [ ] i) Resuscitated ventricular fibrillation or cardiac arrest [ ] ii) Ventricular escape rhythm [ ] iii) Sustained ventricular tachycardia (30 seconds or more of ventricular rhythm at greater than 100 beats per minute) [ ] iv) Nonsustained ventricular tachycardia and ANY ONE of the following: [ ] 1) Suspected cardiac ischemia as cause or consequence of ventricular tachycardia [ ] 2) In setting of acute myocarditis [ ] b) Unstable cardiac conduction defects indicated by ANY ONE of the following(23)(24)(25) [ ] i) Type II second-degree atrioventricular block [ ]ii) Third-degree atrioventricular block [ ]iii) New-onset left bundle branch block with suspected myocardial ischemia [ ]c) Any heart rhythm and ANY ONE of the following (21)(22)(26)(27) (28) [ ] i) Continuous long-term ECG monitoring needed (e.g., initiation of drug requiring monitoring for more than 24 hours) [ ] ii) Patient has automatic implanted cardioverter defibrillator that is repeatedly firing, malfunctioning, or in need of immediate adjustment of settings beyond the scope of ambulatory or observation care [ ]d) Heart rhythms of concern due to ANY ONE of the following: [ ] i) Hypotension [ ] ii) Respiratory distress [ ] iii) Association with other significant symptoms (e.g., bradycardia with syncope or ongoing dizziness, supraventricular tachycardia with chest pain (14)(15)(17) [ ] IV. Monitoring for cardiac contusion beyond the scope of observation care needed [A](30)(31)(32) [ ] V. Surgical or device complication (e.g., valve replacement complication , pacemaker dysfunction) (35)(41)(44)(45)(46) [ ] . Inpatient palliative care needed. [B](49) Also use Inpatient Palliative Care Criteria [ ] VII. Nonbacterial thrombotic ([place]) endocarditis (36)(43)(47)(48) [X] VIII. Cardiology condition, symptom, or finding for which emergency and observation care has failed or are not considered appropriate. [ ] IX. Acute valvular disease requiring inpatient as indicated by ANY ONE of the following (41) [ ]a) Acute valvular regurgitation (42) [ ]b) Noninfectious valvulitis (43) [ ]c) Obstructive valve thrombosis [ ]d) Paravalvular leak [ ]e) Other significant valvular disorder remaining after emergency or observation level of care (as appropriate) [ ]X. Pericardial disease requiring inpatient treatment as indicated by ANY ONE of the following (33)(34)(35)(36)(37) [ ]a) Suspected tamponade (38)(39)(40) [ ]b) Hemopericardium [ ]c) Other significant pericardial disorder remaining after emergency or observation level of care (as appropriate) [ ] XI. Cardiac ischemia beyond scope of emergency and observation care. [ ] XII. Hypertension requiring inpatient treatment as indicated by ANY ONE of the following (6)(7)(8) [ ]a) SBP greater than 220 mm Hg or DBP greater than 120 mmHg despite treatment [ ]b) SBP greater than 140 mm Hg or DBP greater than 100 mm Hg with evidence of acute end organ damage as indicated by ANY ONE of the following [ ] i) Altered mental status [ ] ii) Acute renal failure as indicated by new onset of ANY ONE of the following (9)(10)(11)(12)(13) [ ]1) 3-fold rise in serum creatinine from baseline [ ]2) Serum creatinine greater than 4 mg/dL ( 354 micromoles/L) with acute rise greater than 0.5 mg/dL (44.2 micromoles/L) [ ]3) Reduction of more than 75% in estimated glomerular filtration rate from baseline [ ]4) Estimated glomerular filtration rate less than 35 mL/min/1.73m2 (0.59 mL/sec/1.73m2) in child up to 18 years of age [ ]5) Cessation of urine output indicated by ALL of the following [ ]A. Adequate volume status [ ]B. Inadequate urine output as indicated by ANY ONE of the following [ ]a. Urine output less than 0.3 mL/kg/hr for 24 hours [ ]b. Anuria (urine output less than 0.1 mL/kg/hr) for 12 hours [ ] iii) Aortic dissection [ ] iv) Myocardial Ischemia [ ] v) Left ventricular heart failure [ ]vi) Retinal Hemorrhage [ ]vii) Other significant finding [ ]c) Hypertension in child requiring inpatient treatment as indicated by ALL of the following(14)(15)(16) [ ] i) Outpatient treatment not effective, not available, or not appropriate [ ]ii) SBP or DBP greater than 95th percentile for age [ ]iii) Evidence of acute end organ damage as indicated by ANY ONE of the following [ ]1) Altered mental status [ ]2) Acute renal failure as indicated by new onset of ANY ONE of the following(9)(10)(11)(12)(13) [ ]A. 3-fold rise in serum creatinine from baseline [ ]B. Serum creatinine greater than 4 mg/dL (354 micromoles/L) with acute rise greater than 0.5 mg/dL (44.2 micromoles/L) [ ]C. Reduction of more than 75% in estimated glomerular filtration rate from baseline [ ]D. Estimated glomerular filtration rate less than 35 mL/min/1.73m2 (0.59 mL/sec/1.73m2) in child up to 18 years of age [ ]E. Cessation of urine output indicated by ALL of the following [ ]a. Adequate volume status [ ]b. Inadequate urine output as indicated by ANY ONE of the following [ ]i) Urine output less than 0.3 mL/kg/hr for 24 hours [ ]ii) Anuria ( urine output less than 0.1 mL/kg/hr) for 12 hours [ ]3) Severe headache [ ]4) Visual disturbance [ ]5) Retinal hemorrhage [ ]6) Other significant finding [ ]XIII. Complications of transplanted heart indicated by ANY ONE of the following(61): [ ]a) Acute graft rejection requiring inpatient management (eg, intravenous immunosuppression)(62)(63) [ ]b) Acute graft heart failure indicated by ANY ONE of the following(64): [ ]i) Hemodynamic instability [ ]ii) Cardiac arrhythmias of immediate concern [ ]iii) Pulmonary edema that is very severe (eg, mechanical ventilation needed, imminent or likely, need for 100% oxygen to keep oxygen saturation above 90%) [ ]iv) Pulmonary edema that is persistent as indicated by ALL of the following: [ ]1) New need for oxygen therapy to keep oxygen saturation above 90% (or increased FiO2 need from baseline) [ ]2) Has not improved sufficiently with emergency department or observation care IV diuretics or other heart failure treatments[E] [ ]v) Altered mental status that is severe or persistent [ ]vi) Increased creatinine (new on laboratory test) with reduction of more than 50% in estimated glomerular filtration rate from baseline [ ]vii) Progressively (ongoing) rising creatinine (known from past laboratory test) with reduction of more than 25% in estimated glomerular filtration rate from baseline [ ]viii) Acute renal failure [ ]ix) Acute peripheral ischemia (eg, examination shows pulseless, cool, mottled, or cyanotic extremity) [ ]x) Pulmonary artery catheter monitoring needed [ ]xi) Other sign or symptom of heart failure requiring inpatient treatment (ie, too severe or not responsive to outpatient and observation care treatment) [ ]c) Infection requiring inpatient management (eg, Hemodynamic instability, need for intravenous antimicrobial treatment)(66)(67)(68)(69)(70) [ ]d) Cardiac allograft vasculopathy requiring inpatient management ( eg evidence of cardiac ischemia)(71) [ ]e) Other complication of transplanted heart (eg, stroke, severe pulmonary hypertension, severe valvular dysfunction) requiring inpatient management(72) The original [email or web address] content created by [facility] has been revised. The portions of the content which have been revised are identified through the use of italic text or in bold, and [facility] has neither reviewed nor approved the modified material. All other unmodified content is copyright [facility]. Please see references footnoted in the original [facility] edition 2016 Admission Criteria Met: Yes
--- NOTE | 2016-11-30 08:29 | Progress Note ---
Hospitalist Physical - Constitutional Vitals: Temp Pulse Resp BP Pulse Ox 97.8 F 54 L 18 144/66 97 11/29/16 23:43 11/29/16 23:43 11/29/16 23:43 11/29/16 23:43 11/29/16 23:43 General appearance: Present: no acute distress, well-nourished Results - Labs CBC & Chem 7: 11/29/16 10:31 11/29/16 10:31 Labs: Laboratory Last Values WBC 6.3 K/mm3 (4.5-11.0) 11/29/16 10:31 RBC 3.86 M/mm3 (3.65-5.03) 11/29/16 10:31 Hgb 11.7 gm/dl (10.1-14.3) 11/29/16 10:31 Hct 35.0 % (30.3-42.9) 11/29/16 10:31 MCV 91 fl (79-97) 11/29/16 10:31 MCH 30 pg (28-32) 11/29/16 10:31 MCHC 33 % (30-34) 11/29/16 10:31 RDW 14.1 % (13.2-15.2) 11/29/16 10:31 Plt Count 135 K/mm3 (140-440) L 11/29/16 10:31 Lymph % (Auto) 22.4 % (13.4-35.0) 11/29/16 10:31 [place] % (Auto) 6.9 % (0.0-7.3) 11/29/16 10:31 Eos % (Auto) 1.5 % (0.0-4.3) 11/29/16 10:31 Baso % (Auto) 0.5 % (0.0-1.8) 11/29/16 10:31 Lymph # 1.4 K/mm3 (1.2-5.4) 11/29/16 10:31 [place] # 0.4 K/mm3 (0.0-0.8) 11/29/16 10:31 Eos # 0.1 K/mm3 (0.0-0.4) 11/29/16 10:31 Baso # 0.0 K/mm3 (0.0-0.1) 11/29/16 10:31 Seg Neutrophils % 68.7 % (40.0-70.0) 11/29/16 10:31 Seg Neutrophils # 4.3 K/mm3 (1.8-7.7) 11/29/16 10:31 Sodium 139 mmol/L (137-145) 11/29/16 10:31 Potassium 4.6 mmol/L (3.6-5.0) 11/29/16 10:31 Chloride 102.7 mmol/L (98-107) 11/29/16 10:31 Carbon Dioxide 20 mmol/L (22-30) L 11/29/16 10:31 Anion Gap 21 mmol/L 11/29/16 10:31 BUN 21 mg/dL (7-17) H 11/29/16 10:31 Creatinine 1.1 mg/dL (0.7-1.2) 11/29/16 10:31 Estimated GFR 47 ml/min 11/29/16 10:31 BUN/Creatinine Ratio 19.09 % 11/29/16 10:31 Glucose 98 mg/dL (65-100) 11/29/16 10:31 Calcium 8.8 mg/dL (8.4-10.2) 11/29/16 10:31 Total Creatine Kinase 104 units/L (30-135) 11/30/16 04:16 CK-MB (CK-2) 2.2 ng/mL (0.0-4.0) 11/30/16 04:16 CK-MB (CK-2) Rel Index 2.1 (0-4) 11/30/16 04:16 Troponin T < 0.010 ng/mL (0.00-0.029) 11/29/16 16:55 NT-Pro-B Natriuret Pep 603.9 pg/mL (0-900) 11/29/16 10:33 TSH 5.040 mlU/mL (0.270-4.200) H 11/29/16 16:55 Urine Color Yellow (Yellow) 11/29/16 09:46 Urine Turbidity Clear (Clear) 11/29/16 09:46 Urine pH 5.0 (5.0-7.0) 11/29/16 09:46 Ur Specific [place] 1.015 (1.003-1.030) 11/29/16 09:46 Urine Protein 30 mg/dl mg/dL (Negative) 11/29/16 09:46 Urine Glucose (UA) Neg mg/dL (Negative) 11/29/16 09:46 Urine Ketones Neg mg/dL (Negative) 11/29/16 09:46 Urine Blood Neg (Negative) 11/29/16 09:46 Urine Nitrite Neg (Negative) 11/29/16 09:46 Urine Bilirubin Neg (Negative) 11/29/16 09:46 Urine Urobilinogen < 2.0 mg/dL (<2.0) 11/29/16 09:46 Ur Leukocyte Esterase Tr (Negative) 11/29/16 09:46 Urine WBC (Auto) 4.0 /HPF (0.0-6.0) 11/29/16 09:46 Urine RBC (Auto) 4.0 /HPF (0.0-6.0) 11/29/16 09:46 U Epithel Cells (Auto) 2.0 /HPF (0-13.0) 11/29/16 09:46 Urine Mucus Few /HPF 11/29/16 09:46
[2016-11-30] MEDS ORDERED: LEXISCAN IV ONE (08:40)
[2016-11-30] MEDS ORDERED: MONOKET PO SCH (10:00)
[2016-11-30] MEDS ORDERED: LASIX IV SCH (10:00)
[2016-11-30] MEDS ORDERED: K-DUR PO SCH (10:00)
[2016-11-30] MEDS ORDERED: GLUCOPHAGE PO SCH (12:00)
[2016-11-30] MEDS: COZAAR PO SCH (12:12)
[2016-11-30] MEDS: PROzac PO SCH (12:12)
[2016-11-30] MEDS: SYNTHROID PO SCH (12:12)
[2016-11-30] MEDS: BABY ASPIRIN PO SCH (12:13)
[2016-11-30] MEDS: LOPRESSOR PO SCH (12:14)
--- NOTE | 2016-11-30 12:44 | Consultation ---
History of Present Illness Consult date: 11/30/16 Consult reason: shortness of breath History of present illness: The patient is an 86-year-old woman who is well known to our service, with a history of coronary artery disease, hypertension, anxiety and COPD. With regards to her coronary disease, she has a proximal LAD stent implanted many years ago. 2 recent cardiac catheterizations in November 2011 and again in November 2014 both showed the LAD stent to be widely patent. Mild to moderate nonobstructive disease outside the stented segment was recommended for medical therapy. 4 months ago, a Persantin thallium stress test was normal. Left ventricle systolic function has been well preserved on multiple echocardiograms , most recently 4 months ago. Ejection fraction was 55-60%. In addition to coronary disease, she has a history of intermittent palpitations. This has been extensively worked up in the outpatient setting with a 48-hour Holter. The most significant arrhythmia seen on her monitor was a persistent sinus bradycardia, and in consideration of her intermittent palpitations, she was recommended for very low dose beta blockers, metoprolol 12.5 mg twice a day. There was no malignant bradycardia requiring pacemaker therapy. The patient presented to the hospital at this time with him plaints of shortness of breath, was uncertain about whether there was associated palpitations, but did describe some intermittent dizziness. Serial ECGs in the hospital have been sinus bradycardia, otherwise normal ECG with no ST changes. There was no chest pain, no edema and no syncope. We were asked to consult on the patient for "CHF", per the patient's chest x- ray shows no evidence of pulmonary edema, and there was no edema and no orthopnea. Clinically and radiographically, there is no CHF. The medical team that a thallium stress test, which was done today, and again shows normal perfusion. Patient at this time is comfortable with no further complaints of shortness of breath, and with regards to her bradycardia, heart rate currently varies between 57 and 70 on the telemetry. Past History Past Medical History: arrhythmia, CAD Medications and Allergies Allergies Allergy/AdvReac Type Severity Reaction Status Date / Time codeine Allergy Hives Verified 02/18/14 09:50 meperidine HCl [From Demerol] Allergy Hives Verified 02/18/14 09:50 Home Medications Medication Instructions Recorded Confirmed Last Taken Type Levothyroxine [Synthroid] 75 mcg PO DAILY 02/18/14 04/05/16 1 Day Ago History 75 ALPRAZolam [ALPRAZolam Odt] 0.5 mg PO BID PRN #30 tab 09/26/15 04/05/16 1 Day Ago Rx 0.5 Aspirin [Aspirin BABY CHEW TAB] 81 mg PO DAILY #30 tab.chew 09/26/15 04/05/16 1 Day Ago Rx 81 FLUoxetine [PROzac] 20 mg PO DAILY #30 tablet 09/26/15 04/05/16 1 Day Ago Rx 20 ISOSORBIDE MONOnitrate [Monoket] 60 mg PO DAILY #30 tablet 09/26/15 04/05/16 1 Day Ago Rx 60 Losartan [Cozaar] 100 mg PO QDAY #30 tablet 09/26/15 04/05/16 1 Day Ago Rx 100 Metformin HCl [Glucophage] 500 mg PO DAILY #30 tablet 09/26/15 04/05/16 1 Day Ago Rx 500 Metoprolol [Lopressor TAB] 25 mg PO BID #60 tablet 09/26/15 04/05/16 1 Day Ago Rx 25 Rosuvastatin (Nf) [Crestor] 10 mg PO QHS #30 tablet 09/26/15 04/05/16 1 Day Ago Rx 10 HYDROcodone/APAP 5-325 [[place] 1 - 2 each PO Q6HR PRN #20 tablet 07/10/16 Unknown Rx 5/325] Ibuprofen [Motrin 800 MG tab] 800 mg PO Q8HR PRN #20 tablet 07/10/16 Unknown Rx Promethazine [Phenergan TAB] 25 mg PO Q6HR PRN #20 tab 07/10/16 Unknown Rx Promethazine [Phenergan] 25 mg [place] Q6HR PRN #10 supp.rect 07/10/16 Unknown Rx Active Meds: Active Medications Acetaminophen/Hydrocodone Bitart ([place] 5/325) 1 each PO Q6HR PRN PRN Reason: Pain Alprazolam (Xanax) 0.5 mg PO BID PRN PRN Reason: Anxiety Last Admin: 11/29/16 20:58 Dose: 0.5 mg Aspirin (Baby Aspirin) 81 mg PO DAILY [facility] Last Admin: 11/30/16 12:13 Dose: 81 mg Atorvastatin Calcium (Lipitor) 20 mg PO QHS [facility] Last Admin: 11/29/16 20:59 Dose: 20 mg Enoxaparin Sodium (Lovenox) 40 mg SUB-Q QDAY@2200 [facility] Fluoxetine HCl (Prozac) 20 mg PO DAILY [facility] Last Admin: 11/30/16 12:12 Dose: 20 mg Furosemide (Lasix) 40 mg IV QDAY [facility] Last Admin: 11/30/16 12:13 Dose: 40 mg Ibuprofen (Motrin) 800 mg PO Q8HR PRN PRN Reason: Pain Insulin Human Regular (Novolin R) 0 units SUB-Q ACHS [facility] PRN Reason: Protocol Isosorbide Mononitrate (Monoket) 60 mg PO DAILY [facility] Last Admin: 11/30/16 12:21 Dose: 60 mg Levothyroxine Sodium (Synthroid) 75 mcg PO DAILY [facility] Last Admin: 11/30/16 12:12 Dose: 75 mcg Losartan Potassium (Cozaar) 50 mg PO QDAY [facility] Last Admin: 11/30/16 12:12 Dose: 50 mg Metformin HCl (Glucophage) 500 mg PO QDDIAB [facility] Last Admin: 11/30/16 12:14 Dose: 500 mg Metoprolol Tartrate (Lopressor) 25 mg PO BID [facility] Last Admin: 11/30/16 12:14 Dose: Not Given Potassium Chloride (K-Dur) 20 meq PO QDAY [facility] Last Admin: 11/30/16 12:12 Dose: 20 meq Promethazine HCl (Phenergan) 25 mg [place] Q6HR PRN PRN Reason: Vomiting Promethazine HCl (Phenergan) 25 mg PO Q6HR PRN PRN Reason: Nausea Review of Systems Cardiovascular: palpitations, lightheadedness, shortness of breath, no chest pain, no orthopnea, no rapid/irregular heart beat, no edema, no syncope Physical Examination Vital Signs Pulse Resp 66 19 11/29/16 09:20 11/29/16 09:20 General appearance: no acute distress HEENT: Positive: PERRL Neck: Positive: neck supple Cardiac: Positive: Reg Rate and Rhythm Lungs: Positive: clear to auscultation Neuro: Positive: Grossly Intact Abdomen: Positive: Soft Female genitourinary: deferred Skin: Positive: Clear Extremities: Absent: edema Results 11/29/16 10:31 11/29/16 10:31 Cardiac Enzymes 11/29/16 11/30/16 Range/Units 16:55 04:16 CK-MB (CK-2) 2.5 2.2 (0.0-4.0) ng/mL EKG interpretations - Telemetry EKG Rhythm: Sinus Bradycardia Assessment and Plan - Patient Problems (1) Shortness of breath Current Visit: Yes Status: Acute Plan to address problem: Patient's shortness of breath was more likely a combination of her COPD and possible transient tachycardia arrhythmia. Unfortunately, she cannot be aggressively treated for an underlying tachyarrhythmia and given her baseline sinus bradycardia. We'll continue telemetry monitoring. Ischemic cardiac workup is not likely to be useful in this patient at this time, but we will review her echocardiogram for left ventricle function and valvular function assessment. (2) Bradycardia Current Visit: Yes Status: Acute Plan to address problem: With advanced age, an underlying sinus bradycardia and intermittent dizziness, the patient is at higher risk for conduction system disease. We will therefore follow her bradycardia closely, and if indicated now or in the outpatient setting, get an electrophysiology consult for pacemaker evaluation.
--- NOTE | 2016-11-30 12:46 | Discharge Summary ---
<MANDY LEBLANC - Last Filed: 11/30/16 17:34> Providers - Providers Date of Admission: 11/29/16 13:53 Date of discharge: 11/30/16 Attending physician: JENARO LEDESMA MD 11/30/16 08:22 Consult to Physician [CONS] Routine Consulting Provider: PAULINE ORDAZ Reason For Exam: CHF Place consult to:: dr. ordaz Notified:: overhead page Phone number called:: 0 Was contact made?: Yes If yes, spoke with:: ifeanyi Time called:: 09:23 Primary care physician: BUILDING ATTENDANT Hospitalization Reason for admission: chest pain Condition: Stable Hospital course: Patient is a 86-year-old female hit a history of CAD and COPD here with complaint of worsening shortness of breath for the last 3 days and chest pain today. Patient states that she's noticed that she's having increasing fatigue and shortness of breath especially when she exerts herself. She noticed chest pain today on arrival to the emergency department with radiation to the left shoulder and left arm. Patient was diagnosed with Acute coronary syndrome, Acute exacerbation of Congestive Heart Failure, Hyperlipidemia,Type 2 diabetes mellitus, Hypothyroidism, Hypertension, Coronary artery disease and Generalized Anxiety Disorder. Patient presented with atypical chest pain, ACS was ruled out, CXR was wnl and MPI were negative for ischemia. Patient chest pain probably from musculoskeletal or gastritis. Patient is cleared by Cardiology and She can go home. She was treated with insulin, anticoagulants, antilipid agents, diuretics, benzodiazepines and antihypertensive medications. Patient is clinically improved and stable for discharge. Patient advised to follow-up with Cardiology and her primary care provider as outpatient. Diagnosed Acute coronary syndrome Acute exacerbation of CHF (congestive heart failure) Hyperlipidemia Type 2 diabetes mellitus Hypothyroidism Hypertension CAD (coronary artery disease) LOUISA (generalized anxiety disorder) Disposition: DC-01 TO HOME OR SELFCARE Core Measure Documentation - Palliative Care Palliative Care/ Comfort Measures: Not Applicable - Core Measures Any of the following diagnoses?: none Exam - Constitutional Vitals: Temp Pulse Resp BP Pulse Ox 97.9 F 57 L 18 150/62 97 11/30/16 07:00 11/30/16 12:14 11/30/16 07:00 11/30/16 09:23 11/29/16 23:43 General appearance: Present: no acute distress - EENT Eyes: Present: PERRL ENT: hearing intact, clear oral mucosa, dentition normal - Neck Neck: Present: supple - Respiratory Respiratory effort: normal Respiratory: bilateral: CTA - Cardiovascular Heart rate: 57 Rhythm: regular Heart Sounds: Present: S1 & S2 - Extremities Extremities: no ischemia Peripheral Pulses: within normal limits - Abdominal General gastrointestinal: Present: soft, non-tender Female genitourinary: Present: deferred - Rectal Rectal Exam: deferred - Integumentary Integumentary: Present: clear, warm, dry - Musculoskeletal Musculoskeletal: strength equal bilaterally - Psychiatric Psychiatric: appropriate mood/affect - Neurologic Neurologic: CNII-XII intact - Allied Health Allied health notes reviewed: nursing Plan Activity: no restrictions Diet: low fat, low cholesterol Follow up with: PRIMARY CARE, [Primary Care Provider] - 3-5 Days Prescriptions: Aspirin [Aspirin BABY CHEW TAB] 81 mg PO DAILY #30 tab.chew <JENARO LEDESMA - Last Filed: 12/01/16 16:14> Providers - Providers Date of Admission: 11/29/16 13:53 Attending physician: JENARO LEDESMA MD 11/30/16 08:22 Consult to Physician [CONS] Routine Consulting Provider: PAULINE ORDAZ Reason For Exam: CHF Place consult to:: dr. ordaz Notified:: overhead page Phone number called:: 0 Was contact made?: Yes If yes, spoke with:: ifeanyi Time called:: 09:23 Primary care physician: BUILDING ATTENDANT Hospitalization Hospital course: I saw and evaluated the patient. I agree with the findings and the plan of care as documented in the Nurse Practitioner's~note, with the following corrections and additions. Acute diastolic Congestive heart failure. Time spent for discharge: 35 MINS Core Measure Documentation - Core Measures Any of the following diagnoses?: heart failure - Heart Failure Discharge Requirements ARABELLA/ARB for LVSD if EF <40%: Yes Beta anais at discharge: Yes Exam - Constitutional Vitals: Temp Pulse Resp BP Pulse Ox 98.9 F 64 18 105/56 95 11/30/16 15:12 11/30/16 15:12 11/30/16 15:12 11/30/16 15:12 11/30/16 15:12
[2016-11-30 15:14] VITALS: BP 105/56
[2016-11-30] MEDS ORDERED: LOVENOX SUB-Q SCH (22:00)
== END 2016-11-30 14:00 | disposition home or self-care (01) ==
LOC: ED 09:22 → 3A 13:53
PROVIDERS: ADMIT Internal Medicine; ATTEND Internal Medicine
DX: I24.9 Acute ischemic heart disease, unspecified (principal); I50.9 Heart failure, unspecified; I10 Essential (primary) hypertension; E78.5 Hyperlipidemia, unspecified; E11.9 Type 2 diabetes mellitus without complications; E03.9 Hypothyroidism, unspecified; I25.10 Atherosclerotic heart disease of native coronary artery without angina pectoris; F41.1 Generalized anxiety disorder; J44.9 Chronic obstructive pulmonary disease, unspecified; Z87.442 Personal history of urinary calculi; Z90.710 Acquired absence of both cervix and uterus
CPT/HCPCS: 36415; 71010; 78452; 80048; 81001; 82550; 82553; 82962; 83880; 84443; 84484; 85025; 93005; 93010; 93017; 93306; 96372; 96374; 96375; 99285; A9270; A9502; G0378; J1940; J2785; J1815

== ENCOUNTER 2016-12-02 12:10 | Emergency (ER) | payer MEDICARE ==
--- NOTE | 2016-12-02 13:03 | Emergency Department Report ---
ED Chest Pain HPI - General Chief Complaint: Chest Pain Stated Complaint: CHEST PAIN/HERMAN Time Seen by Provider: 12/02/16 12:49 Source: patient, EMS Mode of arrival: Stretcher Limitations: Physical Limitation - History of Present Illness Initial Comments: 78-year-old female here with complaint of chest pain radiating down the left arm earlier this morning. She had similar episode last Wednesday. I was her physician in the emergency department at that time. She states that the pain is now resolved and she is feeling better. No associated shortness of breath or nausea. She had similar pains in the past. She is discharged on Wednesday. -: Sudden Onset: during rest Pain Location: substernal Pain Radiation: LUE Severity: mild Severity scale (0 -10): 7 Quality: tightness Consistency: now resolved (after nitroglycerin) Improves With: nitroglycerin, rest Worsens With: nothing Other Symptoms: denies: cough, fever, syncope, rash, acid taste in mouth, leg swelling, palpitations, burping Treatments Prior to Arrival: none - Related Data Home Medications Medication Instructions Recorded Confirmed Last Taken Levothyroxine [Synthroid] 75 mcg PO DAILY 02/18/14 04/05/16 1 Day Ago 75 Previous Rx's Medication Instructions Recorded Last Taken Type ALPRAZolam [ALPRAZolam Odt] 0.5 mg PO BID PRN #30 tab 09/26/15 1 Day Ago Rx 0.5 FLUoxetine [PROzac] 20 mg PO DAILY #30 tablet 09/26/15 1 Day Ago Rx 20 ISOSORBIDE MONOnitrate [Monoket] 60 mg PO DAILY #30 tablet 09/26/15 1 Day Ago Rx 60 Losartan [Cozaar] 100 mg PO QDAY #30 tablet 09/26/15 1 Day Ago Rx 100 Metformin HCl [Glucophage] 500 mg PO DAILY #30 tablet 09/26/15 1 Day Ago Rx 500 Metoprolol [Lopressor TAB] 25 mg PO BID #60 tablet 09/26/15 1 Day Ago Rx 25 Rosuvastatin (Nf) [Crestor] 10 mg PO QHS #30 tablet 09/26/15 1 Day Ago Rx 10 HYDROcodone/APAP 5-325 [[place] 1 - 2 each PO Q6HR PRN #20 tablet 07/10/16 Unknown Rx 5-325 mg TAB] Ibuprofen [Motrin 800 MG tab] 800 mg PO Q8HR PRN #20 tablet 07/10/16 Unknown Rx Promethazine [Phenergan TAB] 25 mg PO Q6HR PRN #20 tab 07/10/16 Unknown Rx Aspirin [Aspirin BABY CHEW TAB] 81 mg PO DAILY #30 tab.chew 11/30/16 Unknown Rx AtorvaSTATin [Lipitor] 20 mg PO QHS tablet 11/30/16 Unknown Rx FLUoxetine [PROzac] 20 mg PO DAILY tablet 11/30/16 Unknown Rx Potassium Chloride [K-Dur] 20 meq PO QDAY tablet 11/30/16 Unknown Rx Allergies Allergy/AdvReac Type Severity Reaction Status Date / Time codeine Allergy Hives Verified 12/02/16 12:39 meperidine HCl [From Demerol] Allergy Hives Verified 12/02/16 12:39 Heart Score - HEART Score History: Slightly suspicious EKG: Normal Age: > 65 Risk factors: > 3 risk factors or hx of atherosclerotic disease Troponin: < normal limit HEART Score: 4 - Critical Actions Critical Actions: 4-6 pts:12-16.6% risk of adverse cardiac event. Should be admitted (negative recent stress) ED Review of Systems ROS: Stated complaint: CHEST PAIN/HERMAN Other details as noted in HPI Comment: All other systems reviewed and negative Constitutional: denies: chills, fever Eyes: denies: eye pain, eye discharge, vision change ENT: denies: ear pain, throat pain Respiratory: denies: cough, shortness of breath, wheezing Cardiovascular: as per HPI Endocrine: no symptoms reported Gastrointestinal: denies: abdominal pain, nausea, diarrhea Genitourinary: denies: urgency, dysuria, discharge Musculoskeletal: denies: back pain, joint swelling, arthralgia Skin: denies: rash, lesions Neurological: denies: headache, weakness, paresthesias Psychiatric: denies: anxiety, depression Hematological/Lymphatic: denies: easy bleeding, easy bruising ED Past Medical Hx - Past Medical History Hx Hypertension: Yes Hx Heart Attack/AMI: Yes Hx Congestive Heart Failure: Yes Hx Diabetes: Yes Hx Deep Vein Thrombosis: Yes Hx Arthritis: Yes Hx Kidney Stones: Yes Hx COPD: Yes Hx Tuberculosis: No Hx HIV: No Additional medical history: hypothyroid - Surgical History Hx Coronary Stent: Yes (1 stent) Additional Surgical History: bilateral shoulder surgery. hysterectomy - Social History Smoking Status: Never Smoker Substance Use Type: None - Medications Home Medications: Home Medications Medication Instructions Recorded Confirmed Last Taken Type Levothyroxine [Synthroid] 75 mcg PO DAILY 02/18/14 04/05/16 1 Day Ago History 75 ALPRAZolam [ALPRAZolam Odt] 0.5 mg PO BID PRN #30 tab 09/26/15 04/05/16 1 Day Ago Rx 0.5 FLUoxetine [PROzac] 20 mg PO DAILY #30 tablet 09/26/15 04/05/16 1 Day Ago Rx 20 ISOSORBIDE MONOnitrate [Monoket] 60 mg PO DAILY #30 tablet 09/26/15 04/05/16 1 Day Ago Rx 60 Losartan [Cozaar] 100 mg PO QDAY #30 tablet 09/26/15 04/05/16 1 Day Ago Rx 100 Metformin HCl [Glucophage] 500 mg PO DAILY #30 tablet 09/26/15 04/05/16 1 Day Ago Rx 500 Metoprolol [Lopressor TAB] 25 mg PO BID #60 tablet 09/26/15 04/05/16 1 Day Ago Rx 25 Rosuvastatin (Nf) [Crestor] 10 mg PO QHS #30 tablet 09/26/15 04/05/16 1 Day Ago Rx 10 HYDROcodone/APAP 5-325 [[place] 1 - 2 each PO Q6HR PRN #20 tablet 07/10/16 Unknown Rx 5-325 mg TAB] Ibuprofen [Motrin 800 MG tab] 800 mg PO Q8HR PRN #20 tablet 07/10/16 Unknown Rx Promethazine [Phenergan TAB] 25 mg PO Q6HR PRN #20 tab 07/10/16 Unknown Rx Aspirin [Aspirin BABY CHEW TAB] 81 mg PO DAILY #30 tab.chew 11/30/16 Unknown Rx AtorvaSTATin [Lipitor] 20 mg PO QHS tablet 11/30/16 Unknown Rx FLUoxetine [PROzac] 20 mg PO DAILY tablet 11/30/16 Unknown Rx Potassium Chloride [K-Dur] 20 meq PO QDAY tablet 11/30/16 Unknown Rx ED Physical Exam - General Limitations: Physical Limitation General appearance: alert, in no apparent distress - Head Head exam: Present: atraumatic, normocephalic - Eye Eye exam: Present: normal appearance - ENT ENT exam: Present: mucous membranes moist - Neck Neck exam: Present: normal inspection - Respiratory Respiratory exam: Present: normal lung sounds bilaterally. Absent: respiratory distress - Cardiovascular Cardiovascular Exam: Present: regular rate, normal rhythm. Absent: systolic murmur, diastolic murmur, rubs, gallop - GI/Abdominal GI/Abdominal exam: Present: soft, normal bowel sounds - Extremities Exam Extremities exam: Present: normal inspection - Back Exam Back exam: Present: normal inspection - Neurological Exam Neurological exam: Present: alert, oriented X3 - Psychiatric Psychiatric exam: Present: normal affect, normal mood - Skin Skin exam: Present: warm, dry, intact, normal color. Absent: rash ED Course Vital Signs 12/02/16 12:32 Temperature 98.6 F Pulse Rate 59 L Respiratory 20 Rate Blood Pressure 134/60 Blood Pressure 134/60 [Left] O2 Sat by Pulse 97 Oximetry ED Medical Decision Making - Lab Data Result diagrams: 12/02/16 13:05 12/02/16 13:05 Laboratory Results - last 24 hr 12/02/16 12/02/16 13:05 13:05 WBC 6.3 RBC 3.94 Hgb 12.0 Hct 35.7 MCV 91 MCH 30 MCHC 34 RDW 14.1 Plt Count 146 Lymph % (Auto) 25.1 [place] % (Auto) 6.5 Eos % (Auto) 1.8 Baso % (Auto) 0.4 Lymph # 1.6 [place] # 0.4 Eos # 0.1 Baso # 0.0 Seg Neutrophils % 66.2 Seg Neutrophils # 4.2 Sodium 140 Potassium 4.2 Chloride 104.4 Carbon Dioxide 20 L Anion Gap 20 BUN 24 H Creatinine 1.1 Estimated GFR 47 BUN/Creatinine Ratio 21.81 Glucose 108 H Calcium 9.1 Total Bilirubin 0.50 AST 17 ALT 13 Alkaline Phosphatase 73 Troponin T < 0.010 Total Protein 6.8 Albumin 3.9 Albumin/Globulin Ratio 1.3 - EKG Data -: EKG Interpreted by Me - EKG Data 12/02/16 13:02 Sinus bradycardia rate of 57 normal axis normal intervals and no ST-T wave changes - Medical Decision Making 78-year-old female with recent visit to the emergency department with similar symptoms here with recurrent chest pain. She appears well and has a normal EKG. Suspect that this is likely anxiety she's had similar in the past. Plan to review her recent visit check labs EKG chest x-ray didn't suspect we'll be able to discharge home. On her last visit she had a negative stress and was cleared by cardiology. Chest x-ray EKG and troponin all negative. Plan to discharge the patient home. Portions of this chart were dictated with dictation software. There may be dictation errors contained within this note. Critical care attestation.: If time is entered above; I have spent that time in minutes in the direct care of this critically ill patient, excluding procedure time. ED Disposition Clinical Impression: Chest pain, CAD (coronary artery disease), Atypical chest pain Disposition: DC- TO HOME OR SELFCARE Is pt being admited?: No Condition: Stable Instructions: Chest Pain (ED) Additional Instructions: Follow-up with your outpatient crew leader/control room operator
[2016-12-02 13:20] LABS: Basophils % (Auto) 0.4 % (0.0-1.8); Eosinophils % (Auto) 1.8 % (0.0-4.3); Hematocrit 35.7 % (30.3-42.9); Mean Corpuscular HGB Conc 34 % (30-34); Mean Corpuscular Hemoglobin 30 pg (28-32); Mean Corpuscular Volume 91 fl (79-97); Platelet Count 146 K/mm3 (140-440); Red Blood Count 3.94 M/mm3 (3.65-5.03); Red Cell Distribution Width 14.1 % (13.2-15.2); White Blood Count 6.3 K/mm3 (4.5-11.0)
[2016-12-02 13:39] LABS: Alanine Aminotransferase 13 units/L (7-56); Albumin 3.9 g/dL (3.9-5); Albumin/Globulin Ratio 1.3 %; Alkaline Phosphatase 73 units/L (35-129); Anion Gap 20 mmol/L; BUN/Creatinine Ratio 21.81; Blood Urea Nitrogen 24 mg/dL (7-17); Calcium 9.1 mg/dL (8.4-10.2); Carbon Dioxide 20 mmol/L (22-30); Chloride 104.4 mmol/L (98-107); Glucose 108 mg/dL (65-100); Potassium 4.2 mmol/L (3.6-5.0); Sodium 140 mmol/L (137-145); Total Protein 6.8 g/dL (6.3-8.2)
--- NOTE | 2016-12-02 14:03 | XRay Report ---
AP CHEST: HISTORY: chest pain The lungs are mildly hyperinflated but clear. Heart and mediastinal structures are within normal limits. No acute bony abnormality. No change since 11/29/16. IMPRESSION: No acute cardiopulmonary findings.
[2016-12-02 14:28] VITALS: BP 128/62
--- NOTE | 2016-12-04 07:32 | Treadmill Report ---
THALLIUM STRESS TEST LEFT VENTRICLE: Left ventricular chamber size is within normal. Perfusion study demonstrates homogeneous uptake of the tracer in all segments, no significant perfusion defects identified. Gated analysis demonstrates normal left ventricular systolic function, ejection fraction 56%. CONCLUSION: Normal myocardial perfusion study. JOB# [id number] CA/NTS
== END 2016-12-02 15:09 | disposition home or self-care (01) ==
LOC: ED 12:10
DX: I25.10 Atherosclerotic heart disease of native coronary artery without angina pectoris (principal); I11.0 Hypertensive heart disease with heart failure; I50.9 Heart failure, unspecified; I25.2 Old myocardial infarction; E11.9 Type 2 diabetes mellitus without complications; M19.90 Unspecified osteoarthritis, unspecified site; J44.9 Chronic obstructive pulmonary disease, unspecified; E03.9 Hypothyroidism, unspecified; Z86.718 Personal history of other venous thrombosis and embolism; Z88.6 Allergy status to analgesic agent; Z88.8 Allergy status to other drugs, medicaments and biological substances
CPT/HCPCS: 36415; 71010; 80053; 84484; 85025; 93005; 93010; 99284

== ENCOUNTER 2017-02-23 10:40 | Observation (INO) | payer MEDICARE ==
[2017-02-23 12:05] LABS: Basophils % (Auto) 0.5 % (0.0-1.8); Eosinophils % (Auto) 1.4 % (0.0-4.3); Hematocrit 34.8 % (30.3-42.9); Hemoglobin 11.8 gm/dl (10.1-14.3); Mean Corpuscular HGB Conc 34 % (30-34); Mean Corpuscular Hemoglobin 31 pg (28-32); Mean Corpuscular Volume 90 fl (79-97); Platelet Count 137 K/mm3 (140-440); Red Blood Count 3.84 M/mm3 (3.65-5.03); White Blood Count 6.3 K/mm3 (4.5-11.0)
[2017-02-23 12:15] LABS: INR 1.06 (0.87-1.13)
[2017-02-23 12:21] LABS: Calcium 9.3 mg/dL (8.4-10.2); Chloride 104.1 mmol/L (98-107); Potassium 4.7 mmol/L (3.6-5.0)
[2017-02-23] MEDS ORDERED: NACL 0.45% 1000 ML 1,000 ML IV ONE (12:27)
[2017-02-23] MEDS ORDERED: NACL 0.9% 1,000 ML, VANCOMYCIN VIAL 1,000 MG IR ONE (12:45)
[2017-02-23] MEDS ORDERED: NACL 0.45% 1000 ML IV SCH (13:00)
[2017-02-23] MEDS ORDERED: NACL 0.45% 1000 ML 1,000 ML IV SCH (13:00)
[2017-02-23] MEDS ORDERED: XYLOCAINE 1% 20 mL ONE ×2 (13:32→13:36)
[2017-02-23] MEDS ORDERED: ANCEF/STERILE WATER 2 GM/20 ML 2 GM/20 ML SYRINGE IV ONE (13:32)
[2017-02-23] MEDS ORDERED: MARCAINE 0.5% 60 ML INFILTRATI ONE (13:32)
[2017-02-23] MEDS ORDERED: NACL 0.9% 500 ML IR ONE (13:32)
[2017-02-23] MEDS ORDERED: MARCAINE 0.5% 30 ML INFILTRATI ONE (13:35)
[2017-02-23] MEDS: SUBLIMAZE ONE ×3 (13:55→14:26)
[2017-02-23] MEDS: VERSED ONE ×2 (13:55→14:05)
[2017-02-23] MEDS ORDERED: VERSED ONE (14:26)
--- NOTE | 2017-02-23 15:18 | Event Note ---
Date: 02/23/17 Patient underwent dual chamber pacemaker without apparent complications. At time of discharge, stop amlodipine and increase metoprolol to 25 bid. Also prescribe short course of percocet (5/325) as needed for pain at time of discharge (chart lists codeine allergy but pt reports she has previously tolerated percocet). Yosvany Ellis MD
[2017-02-23] MEDS ORDERED: NORCO 5/325 PO PRN (15:19)
[2017-02-23] MEDS ORDERED: SYNTHROID PO SCH (15:30)
--- NOTE | 2017-02-23 15:52 | XRay Report ---
AP chest x-ray. History: Pacemaker postop. Findings: The heart and pulmonary vessels are normal. The lungs are clear. A bipolar pacemaker has been placed in satisfactory position with no evidence of pneumothorax. There is no pleural fluid. Impression: No acute findings or complications of pacemaker placement.
[2017-02-23] MEDS: MONOKET PO SCH (16:53)
[2017-02-23] MEDS: ANCEF/NS 1 GM/50 ML 1 GM/50 ML BAG IV SCH (21:10)
[2017-02-23] MEDS: LOPRESSOR PO SCH (21:16)
[2017-02-23] MEDS: GLUCOPHAGE PO SCH (21:18)
[2017-02-23] MEDS ORDERED: METFORMIN HCL 500 MG PO SCH (22:00)
[2017-02-23] MEDS ORDERED: NON-FORMULARY (Rosuvastatin (Nf) 10 MG) PO SCH (22:00)
[2017-02-24] MEDS: ANCEF/NS 1 GM/50 ML 1 GM/50 ML BAG IV SCH (04:46)
[2017-02-24] MEDS ORDERED: SYNTHROID PO SCH (06:00)
[2017-02-24 09:04] VITALS: BP 134/60
[2017-02-24] MEDS ORDERED: NON-FORMULARY (Losartan [Cozaar] 100 MG) PO SCH (10:00)
[2017-02-24] MEDS ORDERED: COZAAR PO SCH (10:00)
[2017-02-24] MEDS ORDERED: BABY ASPIRIN PO SCH (10:00)
[2017-02-24] MEDS ORDERED: PLAVIX PO SCH (10:00)
[2017-02-24] MEDS ORDERED: PROzac PO SCH (10:00)
[2017-02-24] MEDS: MONOKET PO SCH (11:35)
[2017-02-24] MEDS: LOPRESSOR PO SCH (11:37)
--- NOTE | 2017-02-24 11:37 | Short Stay Summary ---
Short Stay Documentation Date of service: 02/24/17 - History H&P: obtained from office - Allergies and Medications Current Medications: Allergies codeine Allergy (Verified 12/02/16 12:39) Hives meperidine HCl [From Demerol] Allergy (Verified 12/02/16 12:39) Hives Home Medications Medication Instructions Recorded Confirmed Last Taken Type Levothyroxine [Synthroid] 75 mcg PO DAILY 02/18/14 02/23/17 02/23/17 History ISOSORBIDE MONOnitrate [Monoket] 60 mg PO DAILY #30 tablet 09/26/15 02/23/17 Rx Losartan [Cozaar] 100 mg PO QDAY #30 tablet 09/26/15 02/23/17 02/23/17 Rx Rosuvastatin (Nf) [Crestor] 10 mg PO QHS #30 tablet 09/26/15 02/23/17 02/23/17 Rx Aspirin [Aspirin BABY CHEW TAB] 81 mg PO DAILY #30 tab.chew 11/30/16 02/23/17 Rx FLUoxetine [PROzac] 20 mg PO DAILY tablet 11/30/16 02/23/17 02/23/17 Rx Amlodipine Besylate [Amlodipine 2.5 mg PO DAILY 02/23/17 02/23/17 02/23/17 History Besylate] Clopidogrel Bisulfate [Clopidogrel] 75 mg PO DAILY 02/23/17 02/23/17 02/23/17 History Metformin HCl [Glucophage] 500 mg PO BID 02/23/17 02/23/17 02/22/17 History Metoprolol [Lopressor TAB] 12.5 mg PO BID 02/23/17 02/23/17 02/23/17 History Active Medications Acetaminophen/Hydrocodone Bitart ([place] 5/325) 1 each PO Q6H PRN PRN Reason: Pain, Moderate (4-6) Last Admin: 02/24/17 08:28 Dose: 1 each Aspirin (Baby Aspirin) 81 mg PO DAILY KARLO Atorvastatin Calcium (Lipitor) 20 mg PO QHS [facility] Last Admin: 02/23/17 21:16 Dose: 20 mg Clopidogrel Bisulfate (Plavix) 75 mg PO DAILY KAROL Fluoxetine HCl (Prozac) 20 mg PO DAILY [facility] Sodium Chloride (Nacl 0.45% 1000 Ml) 1,000 mls @ 50 mls/hr IV DIRECT [facility] Last Admin: 02/23/17 13:04 Dose: 50 mls/hr Isosorbide Mononitrate (Monoket) 60 mg PO DAILY [facility] Last Admin: 02/23/17 16:53 Dose: Not Given Levothyroxine Sodium (Synthroid) 75 mcg PO DAILY@0600 [facility] Last Admin: 02/24/17 05:59 Dose: 75 mcg Losartan Potassium (Cozaar) 100 mg PO QDAY [facility] Metformin HCl (Glucophage) 500 mg PO BIDDIAB [facility] Last Admin: 02/23/17 21:18 Dose: Not Given Metoprolol Tartrate (Lopressor) 25 mg PO BID [facility] Last Admin: 02/23/17 21:16 Dose: 25 mg - Physical exam General appearance: no acute distress HEENT: PERRLA Heart: Regular rate, Normal S1, Normal S2 - Brief post op/procedure progress note Procedure: Patient underwent dual chamber pacemaker without apparent complications. Condition: stable - Hospital course Hospital course: Stable overnight observation. Normal device function on interrogation today. - Disposition Condition at discharge: Good Disposition: [id number] TO HOME OR SELFCARE Short Stay Discharge Plan Diet: low fat, low cholesterol, low salt, diabetic Wound: keep clean and dry Special Instructions: keep arm in sling for 72 hours Additional Instructions: 1. Stop amlodipine (norvasc). 2. Increase metoprolol to 25mg twice a day. Prescriptions included on discharge. Follow up with: BLAZE HEADLEY MD [Primary Care Provider] - 7 Days LIZZIE DE LEÓN MD [Staff Physician] - 7 Days Prescriptions: Cephalexin [Keflex] 500 mg PO Q8HR #9 cap HYDROcodone/APAP 5-325 [[place] 5-325 mg TAB] 1 each PO Q6H PRN #10 tablet PRN Reason: Pain, Moderate (4-6) Metoprolol [Lopressor TAB] 25 mg PO BID #60 tablet
[2017-02-24] MEDS: GLUCOPHAGE PO SCH (11:38)
== END 2017-02-24 12:00 | disposition home or self-care (01) ==
LOC: CATHLABREC 10:40 → INTOOBSV 14:34 → 4A 14:34 → OBSVTOIN 14:34 → 4A 17:19
PROVIDERS: ADMIT Internal Medicine Cardiovascular Disease; ATTEND Internal Medicine Cardiovascular Disease
DX: I49.5 Sick sinus syndrome (principal); E03.9 Hypothyroidism, unspecified; E78.5 Hyperlipidemia, unspecified; I10 Essential (primary) hypertension; E11.9 Type 2 diabetes mellitus without complications; K21.9 Gastro-esophageal reflux disease without esophagitis; I25.10 Atherosclerotic heart disease of native coronary artery without angina pectoris; I47.2 Ventricular tachycardia; Z95.810 Presence of automatic (implantable) cardiac defibrillator
CPT/HCPCS: 33208; 36415; 71010; 80048; 82962; 85025; 85610; 85730; 93005; 93010; 96365; 96375; A9270; C1779; C1781; C1785; C1892; G0378; J0690; J2250; J3010; J3370